=== PATIENT | male | born 1975 | race Caucasian/White ===

== ENCOUNTER 2023-11-05 11:51 | Inpatient (IN) | payer MEDICARE, OTHER ==
[2023-11-05 11:59] LABS: Glucose,Whole Blood 559 mg/dL (70-110)
[2023-11-05] MEDS: SODIUM CHLORIDE 0.9% 1,000 ML IV SCH (13:20)
[2023-11-05] MEDS: SODIUM CHLORIDE 0.9% 1,000 ML IV ONE (13:20)
--- NOTE | 2023-11-05 13:31 | XR ---
EXAMINATION TYPE: XR chest 2V DATE OF EXAM: 11/05/2023 COMPARISON: NONE HISTORY: Chest pain TECHNIQUE: Frontal and lateral views of the chest are obtained. FINDINGS: There is no focal air space opacity. No evidence for pneumothorax. No pleural effusion. The cardiac silhouette size is within normal limits. The osseous structures are grossly intact. IMPRESSION: 1. No acute cardiopulmonary process.
[2023-11-05 13:51] LABS: ALT 66 U/L (4-49); AST 64 U/L (17-59); African American GFR (CKD) >90 (>60 ml/min/1.73 sqM); Albumin 3.1 g/dL (3.5-5.0); Alkaline Phosphatase 83 U/L (38-126); Anion Gap 6 mmol/L; Blood Urea Nitrogen 23 mg/dL (9-20); Calcium 8.4 mg/dL (8.4-10.2); Carbon Dioxide 22 mmol/L (22-30); Chloride 99 mmol/L (98-107); Glucose 490 mg/dL (74-99); Non-African American GFR(CKD) >90 (>60 ml/min/1.73 sqM); Potassium 5.1 mmol/L (3.5-5.1); Sodium 127 mmol/L (137-145); Total Bilirubin 0.7 mg/dL (0.2-1.3); Total Protein 6.2 g/dL (6.3-8.2)
[2023-11-05 14:00] LABS: NT-Pro-B-Type Natriuretic Pept 101 pg/mL
--- NOTE | 2023-11-05 14:01 | US ---
EXAMINATION TYPE: US venous doppler duplex LE LT DATE OF EXAM: 11/05/2023 1:12 PM COMPARISON: NONE CLINICAL INDICATION: Male, 48 years old with history of leg swelling; HTN; DM; LLE swelling SIDE PERFORMED: Left TECHNIQUE: The lower extremity deep venous system is examined utilizing real time linear array sonog toya with graded compression, doppler sonography and color-flow sonography. VESSELS IMAGED: Common Femoral Vein Deep Femoral Vein Greater Saphenous Vein * Femoral Vein Popliteal Vein Small Saphenous Vein * Proximal Calf Veins (* superficial vessels) Right Leg: NA Left Leg: Negative for DVT Multiple enlarged hypoechoic lymph nodes noted IMPRESSION: Grayscale, color doppler, spectral doppler imaging performed of the deep veins of the lo wer extremities. There is normal flow, compressibility, vascular waveforms.
[2023-11-05 14:05] LABS: Basophils # (A) 0.1 k/uL (0-0.2); Basophils % (A) 0 %; Eosinophils # (A) 0.3 k/uL (0-0.7); Eosinophils % (A) 2 %; HCT 34.1 % (39.0-53.0); HGB 11.6 gm/dL (13.0-17.5); Lymphocytes # (A) 0.6 k/uL (1.0-4.8); Lymphocytes % (A) 3 %; MCHC 33.9 g/dL (31.0-37.0); MCV 85.3 fL (80.0-100.0); Mean Platelet Volume 7.2; Monocytes # (A) 0.9 k/uL (0-1.0); Monocytes % (A) 5 %; Neutrophils # (A) 17.3 k/uL (1.3-7.7); Neutrophils % (A) 90 %; Platelet Count 148 k/uL (150-450); RBC 3.99 m/uL (4.30-5.90); RDW 14.6 % (11.5-15.5); WBC 19.3 k/uL (3.8-10.6)
--- NOTE | 2023-11-05 15:10 | ED ---
General Adult HPI - General Chief complaint: Recheck/Abnormal Lab/Rx Stated complaint: Hyperglycemia Time Seen by Provider: 11/05/23 12:25 Source: patient, EMS Mode of arrival: EMS Limitations: no limitations - History of Present Illness Initial comments: 48-year-old male with past medical history of diabetes mellitus on insulin, DVT, coronary disease with bypass, polysubstance abuse who presents to the emergency department with swollen left leg, elevated heart rate and high glucose. Patient is a transfer from [place]. He reported to [facility] yesterday. Today he went into the medical office and was complaining of swelling in his left leg with redness and pain. He told them he had of DVT he also has a history of coronary artery disease with bypass. He is supposed to take Plavix. States he has not had his medication in 1 week. He is also supposed to be on insulin. He states they have been giving him insulin at [facility] however his sugars have still been running high. Patient denies any chest pain or shortness of breath. No abdominal pain. No history of liver disease. Unsure if he has a history of heart failure. No fevers. No other alleviating, precipitating or modifying factors - Related Data Home Medications Medication Instructions Recorded Confirmed Atorvastatin Calcium [Lipitor] 40 mg PO HS 11/05/23 11/05/23 Cephalexin [Keflex] 1,000 mg PO BID 11/05/23 11/05/23 Clopidogrel [Plavix] 75 mg PO DAILY 11/05/23 11/05/23 Insulin Regular, Human [NovoLIN R] See Protocol SQ ACHS 11/05/23 11/05/23 buprenorphine HCL [Subutex] 8 mg SL DAILY 11/05/23 11/05/23 lisinopriL [Zestril] 5 mg PO DAILY 11/05/23 11/05/23 metFORMIN HCL 1,000 mg PO BID 11/05/23 11/05/23 Allergies Allergy/AdvReac Type Severity Reaction Status Date / Time lorazepam [From Ativan] AdvReac psychotic Verified 11/05/23 14:42 episodes Review of Systems ROS Statement: Those systems with pertinent positive or pertinent negative responses have been documented in the HPI. ROS Other: All systems not noted in ROS Statement are negative. Past Medical History Past Medical History: Diabetes Mellitus, Deep Vein Thrombosis (DVT), Myocardial Infarction (ID) History of Any Multi-Drug Resistant Organisms: None Reported Past Surgical History: Coronary Bypass/CABG Smoking Status: Current every day smoker Past Alcohol Use History: None Reported Past Drug Use History: Cocaine, Heroin, Marijuana, Opiates General Exam Limitations: no limitations General appearance: alert, in no apparent distress Head exam: Present: atraumatic, normocephalic, normal inspection Eye exam: Present: normal appearance, PERRL, EOMI. Absent: scleral icterus, conjunctival injection, periorbital swelling ENT exam: Present: normal exam, mucous membranes moist Neck exam: Present: normal inspection Respiratory exam: Present: normal lung sounds bilaterally. Absent: respiratory distress, wheezes, rales, rhonchi, stridor Cardiovascular Exam: Present: regular rate, normal rhythm, normal heart sounds. Absent: systolic murmur, diastolic murmur, rubs, gallop, clicks GI/Abdominal exam: Present: soft, normal bowel sounds. Absent: distended, tenderness, guarding, rebound, rigid Extremities exam: Present: other (redness, warmth, swelling to the left lower extremity. Some skin ulceration around his great toe) Back exam: Present: normal inspection Neurological exam: Present: alert, oriented X3, CN II-XII intact Psychiatric exam: Present: normal affect, normal mood Course Vital Signs 11/05/23 11/05/23 11:53 12:04 Temperature 97.2 F L Pulse Rate 99 Pulse Rate [ 100 Therapist Radiation ] Respiratory 18 Rate Blood Pressure 121/72 O2 Sat by Pulse 97 Oximetry Medical Decision Making - Medical Decision Making Was pt. sent in by a medical professional or institution (, PA, RESIDENTIAL MORTGAGE MANAGER, urgent care, hospital, or intermediate...) When possible be specific @ -[facility] Did you speak to anyone other than the patient for history (EMS, parent, family, police, friend...)? What history was obtained from this source @ -EMS Did you review nursing and triage notes (agree or disagree)? Why? @ -I reviewed and agree with nursing and triage notes Were old charts reviewed (outside hosp., previous admission, EMS record, old EKG, old radiological studies, urgent care reports/EKG's, intermediate records)? Report findings @ -Reviewed packet from [facility] Differential Diagnosis (chest pain, altered mental status, abdominal pain women, abdominal pain men, vaginal bleeding, weakness, fever, dyspnea, syncope, headache, dizziness, GI bleed, back pain, seizure, CVA, palpatations, mental health, musculoskeletal)? @ -cellulitis, abscess, DVT, heart failure EKG interpreted by me (3pts min.). @ -Yes and demonstrates sinus rhythm with a rate of 83. MI interval 191. QRS 85. QTc of 389. No acute ST segment elevations or depressions X-rays interpreted by me (1pt min.). @ -yes and there are no signs of heart failure CT interpreted by me (1pt min.). @ -None done U/S interpreted by me (1pt. min.). @ -Yes and there are no signs of DVT What testing was considered but not performed or refused? (CT, X-rays, U/S, labs)? Why? @ -CT chest was considered however patient denies any chest pain or shortness of breath What meds were considered but not given or refused? Why? @ -None Did you discuss the management of the patient with other professionals (samantha osman i.e. , PA, RESIDENTIAL MORTGAGE MANAGER, lab, RT, psych nurse, social services aide, borematic machine operator, teacher, staff electronic warfare officer, shoe caser)? Give summary @ -spoke with dr. mitchell who accepted admission Was smoking cessation discussed for >3mins.? @ -No Was critical care preformed (if so, how long)? @ -No Were there social determinants of health that impacted care today? How? (Homelessness, low income, unemployed, alcoholism, drug addiction, transportation, low edu. Level, literacy, decrease access to med. care, penitentiary, rehab)? @ -Patient is at [facility] Was there de-escalation of care discussed even if they declined (Discuss DNR or withdrawal of care, Hospice)? DNR status @ -No What co-morbidities impacted this encounter? (DM, HTN, Smoking, COPD, CAD, Cancer, CVA, ARF, Chemo, Hep., AIDS, mental health diagnosis, sleep apnea, morbid obesity)? @ -Coronary artery disease with bypass, dm, dvt Was patient admitted / discharged? Hospital course, mention meds given and route, prescriptions, significant lab abnormalities, going to OR and other pertinent info. @ -Upon arrival patient seen and evaluated in room 25. Thorough history and physical exam was performed. IV access was established. Laboratory studies are conducted. Glucose is high. He is started on 150 cc of normal saline per hour as it is unsure it is unknown if the patient has a history of heart failure. Ultrasound was performed. Chest x-ray was performed. No signs of DVT. Patient is not in heart failure. Glucose is high therefore patient is dosed additional insulin. There are concerns that the patient's left lower extremity swelling and redness is due to cellulitis as he does have an elevated white blood cell count of 19. He will be initiated on antibiotics at this time. Patient requires admission. Spoke with Dr. Mitchell for admission. Undiagnosed new problem with uncertain prognosis? @ -No Drug Therapy requiring intensive monitoring for toxicity (Heparin, Nitro, Insulin, Cardizem)? @ -No Were any procedures done? @ -No Diagnosis/symptom? @ -Acute left lower extremity swelling possible cellulitis, evaluation for DVT, leukocytosis, hyperglycemia Acute, or Chronic, or Acute on Chronic? @ -acute Uncomplicated (without systemic symptoms) or Complicated (systemic symptoms)? @ -complicated Side effects of treatment? @ -No Exacerbation, Progression, or Severe Exacerbation? @ -No Poses a threat to life or bodily function? How? (Chest pain, USA, ID, pneumonia, PE, COPD, DKA, ARF, appy, cholecystitis, CVA, Diverticulitis, Homicidal, Suicidal, threat to staff... and all critical care pts) @ -No - Lab Data Result diagrams: 11/05/23 13:17 11/05/23 13:17 Lab Results 11/05/23 11/05/23 11/05/23 Range/Units 11:58 13:17 13:17 WBC 19.3 H (3.8-10.6) k/uL RBC 3.99 L (4.30-5.90) m/uL Hgb 11.6 L (13.0-17.5) gm/dL Hct 34.1 L (39.0-53.0) % MCV 85.3 (80.0-100.0) fL MCH 29.0 (25.0-35.0) pg MCHC 33.9 (31.0-37.0) g/dL RDW 14.6 (11.5-15.5) % Plt Count 148 L (150-450) k/uL MPV 7.2 Neutrophils % 90 % Lymphocytes % 3 % Monocytes % 5 % Eosinophils % 2 % Basophils % 0 % Neutrophils # 17.3 H (1.3-7.7) k/uL Lymphocytes # 0.6 L (1.0-4.8) k/uL Monocytes # 0.9 (0-1.0) k/uL Eosinophils # 0.3 (0-0.7) k/uL Basophils # 0.1 (0-0.2) k/uL Sodium 127 L (137-145) mmol/L Potassium 5.1 (3.5-5.1) mmol/L Chloride 99 (98-107) mmol/L Carbon Dioxide 22 (22-30) mmol/L Anion Gap 6 mmol/L BUN 23 H (9-20) mg/dL Creatinine 0.69 (0.66-1.25) mg/dL Est GFR (CKD-EPI)AfAm >90 (>60 ml/min/1.73 sqM) Est GFR (CKD-EPI)NonAf >90 (>60 ml/min/1.73 sqM) Glucose 490 H (74-99) mg/dL POC Glucose (mg/dL) 559 H* (70-110) mg/dL POC Glu Alarm Mechanism Adjuster ID Belval, Ginger Plasma Lactic Acid Christopher (0.7-2.0) mmol/L Calcium 8.4 (8.4-10.2) mg/dL Total Bilirubin 0.7 (0.2-1.3) mg/dL AST 64 H (17-59) U/L ALT 66 H (4-49) U/L Alkaline Phosphatase 83 (38-126) U/L Troponin I (0.000-0.034) ng/mL NT-Pro-B Natriuret Pep 101 pg/mL Total Protein 6.2 L (6.3-8.2) g/dL Albumin 3.1 L (3.5-5.0) g/dL Acetone, Qual Negative (Negative) 11/05/23 11/05/23 Range/Units 13:17 13:17 WBC (3.8-10.6) k/uL RBC (4.30-5.90) m/uL Hgb (13.0-17.5) gm/dL Hct (39.0-53.0) % MCV (80.0-100.0) fL MCH (25.0-35.0) pg MCHC (31.0-37.0) g/dL RDW (11.5-15.5) % Plt Count (150-450) k/uL MPV Neutrophils % % Lymphocytes % % Monocytes % % Eosinophils % % Basophils % % Neutrophils # (1.3-7.7) k/uL Lymphocytes # (1.0-4.8) k/uL Monocytes # (0-1.0) k/uL Eosinophils # (0-0.7) k/uL Basophils # (0-0.2) k/uL Sodium (137-145) mmol/L Potassium (3.5-5.1) mmol/L Chloride (98-107) mmol/L Carbon Dioxide (22-30) mmol/L Anion Gap mmol/L BUN (9-20) mg/dL Creatinine (0.66-1.25) mg/dL Est GFR (CKD-EPI)AfAm (>60 ml/min/1.73 sqM) Est GFR (CKD-EPI)NonAf (>60 ml/min/1.73 sqM) Glucose (74-99) mg/dL POC Glucose (mg/dL) (70-110) mg/dL POC Glu Alarm Mechanism Adjuster ID Plasma Lactic Acid Christopher 2.5 H* (0.7-2.0) mmol/L Calcium (8.4-10.2) mg/dL Total Bilirubin (0.2-1.3) mg/dL AST (17-59) U/L ALT (4-49) U/L Alkaline Phosphatase (38-126) U/L Troponin I <0.012 (0.000-0.034) ng/mL NT-Pro-B Natriuret Pep pg/mL Total Protein (6.3-8.2) g/dL Albumin (3.5-5.0) g/dL Acetone, Qual (Negative) Disposition Clinical Impression: Cellulitis, Hyperglycemia, Leukocytosis Disposition: ADMITTED IP TO THIS HOSP Condition: Stable Is patient prescribed a controlled substance at d/c from ED?: No Referrals: None,Stated [Primary Care Provider] - 1-2 days Time of Disposition: 15:54 Decision to Admit Reason: Admit from EC Decision Date: 11/05/23 Decision Time: 15:54
[2023-11-05] MEDS ORDERED: VANCOMYCIN IV PER PHARMACY 1 EACH MISC MISCELLANE PRN (15:31)
[2023-11-05] MEDS ORDERED: DEXTROSE 50% SYRINGE 50 ML IVP PRN ×2 (15:53)
[2023-11-05] MEDS ORDERED: ACETAMINOPHEN TAB 325 MG TAB PO PRN (15:55)
[2023-11-05] MEDS ORDERED: NALOXONE 0.4 MG/ML 1 ML VIAL IV PRN (15:55)
[2023-11-05 16:22] LABS: Glucose,Whole Blood 255 mg/dL (70-110)
[2023-11-05] MEDS: VANCOMYCIN 1,250 MG in SODIUM CHLORIDE 0.9% 250 ML IVPB STA (16:29)
[2023-11-05] MEDS: AMPICILLIN-SULBACTAM 3 GM in SODIUM CHLORIDE 0.9% 100 ML IVPB STA (16:30)
[2023-11-05] MEDS: INSULIN REGULAR 100 UNIT/ML VIAL (IM/SQ) SQ ONE (16:33)
[2023-11-05] MEDS: metFORMIN 500 MG TAB PO SCH (16:47)
[2023-11-05] MEDS: INSULIN ASPART (NovoLOG) 100 UNIT/ML VIAL SQ SCH (16:48)
[2023-11-05 16:49] LABS: Appearance,Urine Clear (Clear); Bilirubin,Urine Negative (Negative); Blood,Urine Trace (Negative); Color,Urine Colorless; Glucose,Urine (UA) 4+ (Negative); Ketones,Urine Negative (Negative); Leukocyte Esterase,Urine Negative (Negative); Nitrite,Urine Negative (Negative); Protein,Urine 1+ (Negative); RBC,Urine <1 /hpf (0-5); Specific Gravity,Urine 1.015 (1.001-1.035); Urobilinogen,Urine <2.0 mg/dL (<2.0); WBC,Urine <1 /hpf (0-5)
--- NOTE | 2023-11-05 17:13 | P.HPIM ---
History of Present Illness H&P Date: 11/05/23 History of Present Illness Patient is a 48-year-old male with past medical history of insulin-dependent type 2 diabetes, DVT, CAD with CABG x 4, polysubstance abuse who presents with fatigue and swollen left leg. Patient is a transfer from [facility]. He reported to [facility] yesterday patient states this morning he was not feeling well and described as feeling fatigue and weakness. He states he is felt nauseous and vomited this morning. He also admits to feeling dehydrated. He is noncompliant with his medications stating that he has not taken it for the past week, and says he is inconsistent at best. Patient also has ulceration seen on left foot. He just noticed ulceration today and does not know the origins of it. Denies any pain in his foot. Denies any fever, chest pain, shortness of breath, abdominal pain. Vitals in the ED: Temperature 97.2, pulse rate 100, respiratory rate 18, blood pressure 121/72, SaO2 97 on room air. Labs show WBC 19 point, Hgb 11.6, PLT 148, sodium 127, glucose 490, lactic acid 2.5, acetone negative. UA: Glucose 4+, trace blood, rest unremarkable. EKG shows normal sinus rhythm. Venous Doppler showed no evidence of DVT. Chest x-ray on independent interpretation shows no cardiopulmonary process. Patient to be admitted for further evaluation of diabetic foot infection and hyperglycemia. Pertinent positives and negatives as discussed above, a complete review of systems was performed and all other systems are negative. Vitals: Signs Reviewed Physical Exam: General: nontoxic, no distress, appears at stated age Derm: warm, dry, intact Head: atraumatic, normocephalic, symmetric Eyes: EOMI, no lid lag, anicteric sclera Mouth: no lip lesion, mucus membranes moist Cardiovascular: S1 S2 reg, no murmur, rubs, or gallops Lungs: CTA bilateral, no rhonchi, no rales, no accessory muscle use Abdominal: soft, non-tender to palpataion, no appreciable organomegaly Extremities: no gross muscle atrophy, no edema, no contractures, ulceration seen on plantar aspect on right 1st toe, left calf redness/tenderness present Neuro: Alert, Oriented, CNII-XII grossly intact, gait normal Psych: well appearing, appropriate affect Assessment and Plan: Patient is a 48-year-old male with past medical history of insulin-dependent type 2 diabetes, DVT, CAD with CABG x 4, polysubstance abuse who presents with fatigue and swollen left leg. Active: Hyperglycemia Insulin-dependent type 2 diabetes Given 16 units of insulin SQ at [facility] Continue metformin 1000 mg p.o. twice daily Insulin subcu sliding scale Normal saline with 150 mls/hr Monitor for hypoglycemia Glucose checks, monitor BMP A1c pending Lactic acid 1.7 UA negative Diabetic foot infection secondary to cellulitis Leukocytosis IV vancomycin. Monitor for renal toxicity. 3 gm Unasyn IVP once Blood cultures pending Follow-up CBC Acetaminophen tab 650 mg PO q6hr prn for mild pain or fever Chronic: Coronary artery disease, CABG x 4 Hypertension Lisinopril 5 mg p.o. daily Atorvastatin 40 mg p.o. at bedtime Plavix 75 mg p.o. daily Polysubstance abuse History of IV drug use use. Narcan 0.2 IV q2m prn History of DVT F: Normal saline with 150 mls/hr E: Replete as needed N: Consistent carbohydrate diet A: Fall precautions, hypoglycemia precautions DVT ppx: Code status: Full Anticipated discharge place: Pending clinical course Anticipated discharge time: Pending clinical course I have seen and evaluated the patient today. Discussed with the resident and agree with the residents subjective and objective as documented in the resident's note. The assessment and plan was discussed and outlined as below. Sepsis secondary to infected diabetic foot ulcer: Start Vancomycin dosed per pharmacy while monitoring renal function. Start Unasyn 3g IV TID. Order BCx. Telemetry monitoring. ID consulted. Diabetes mellitus with hyperglycemia: ISS. Accuchecks ACHS. Hypoglycemic precautions. Follow A1c. Hyponatremia: Pseudo. IV hydration as above. Repeat labs tomorrow. Lactic acidosis: Hold Metformin. IV hydration as above. Trend until negative. Transaminitis: Given h/o IVDU obtain hepatitis panel. CAD with CABG: Plavix 75 mg PO QD. Lipitor 40 mg PO QHS. Normocytic anemia: Unknown baseline. No signs of active bleeding. Monitor. Thrombocytopenia History of IVDU Lovenox SQ for DVT prophylaxis. FULL CODE. Past Medical History Past Medical History: Diabetes Mellitus, Deep Vein Thrombosis (DVT), Myocardial Infarction (NC) History of Any Multi-Drug Resistant Organisms: None Reported Past Surgical History: Coronary Bypass/CABG Smoking Status: Current every day smoker Past Alcohol Use History: None Reported Past Drug Use History: Cocaine, Heroin, Marijuana, Opiates Medications and Allergies Home Medications Medication Instructions Recorded Confirmed Type Atorvastatin Calcium [Lipitor] 40 mg PO HS 11/05/23 11/05/23 History Cephalexin [Keflex] 1,000 mg PO BID 11/05/23 11/05/23 History Clopidogrel [Plavix] 75 mg PO DAILY 11/05/23 11/05/23 History Insulin Regular, Human [NovoLIN R] See Protocol SQ ACHS 11/05/23 11/05/23 History buprenorphine HCL [Subutex] 8 mg SL DAILY 11/05/23 11/05/23 History lisinopriL [Zestril] 5 mg PO DAILY 11/05/23 11/05/23 History metFORMIN HCL 1,000 mg PO BID 11/05/23 11/05/23 History Allergies Allergy/AdvReac Type Severity Reaction Status Date / Time lorazepam [From Ativan] AdvReac psychotic Verified 11/05/23 14:42 episodes Physical Exam Vitals: Vital Signs Temp Pulse Pulse Resp BP Pulse Ox 11/05/23 16:18 77 18 104/42 99 11/05/23 12:04 100 11/05/23 11:53 97.2 F L 99 18 121/72 97 Intake and Output 11/05/23 11/05/23 11/05/23 06:59 14:59 22:59 Other: Weight 72.575 kg Results CBC & Chem 7: 11/05/23 13:17 11/05/23 13:17 Labs: Abnormal Lab Results - Last 24 Hours (Table) 11/05/23 11/05/23 11/05/23 Range/Units 11:58 13:17 13:17 WBC 19.3 H (3.8-10.6) k/uL RBC 3.99 L (4.30-5.90) m/uL Hgb 11.6 L (13.0-17.5) gm/dL Hct 34.1 L (39.0-53.0) % Plt Count 148 L (150-450) k/uL Neutrophils # 17.3 H (1.3-7.7) k/uL Lymphocytes # 0.6 L (1.0-4.8) k/uL Sodium 127 L (137-145) mmol/L BUN 23 H (9-20) mg/dL Glucose 490 H (74-99) mg/dL POC Glucose (mg/dL) 559 H* (70-110) mg/dL Plasma Lactic Acid Christopher (0.7-2.0) mmol/L AST 64 H (17-59) U/L ALT 66 H (4-49) U/L Total Protein 6.2 L (6.3-8.2) g/dL Albumin 3.1 L (3.5-5.0) g/dL 11/05/23 11/05/23 Range/Units 13:17 16:21 WBC (3.8-10.6) k/uL RBC (4.30-5.90) m/uL Hgb (13.0-17.5) gm/dL Hct (39.0-53.0) % Plt Count (150-450) k/uL Neutrophils # (1.3-7.7) k/uL Lymphocytes # (1.0-4.8) k/uL Sodium (137-145) mmol/L BUN (9-20) mg/dL Glucose (74-99) mg/dL POC Glucose (mg/dL) 255 H (70-110) mg/dL Plasma Lactic Acid Christopher 2.5 H* (0.7-2.0) mmol/L AST (17-59) U/L ALT (4-49) U/L Total Protein (6.3-8.2) g/dL Albumin (3.5-5.0) g/dL
[2023-11-05 20:31] LABS: Glucose,Whole Blood 222 mg/dL (70-110)
[2023-11-05] MEDS: ATORVASTATIN 40 MG TAB PO SCH (21:43)
[2023-11-06] MEDS: AMPICILLIN-SULBACTAM 3 GM in SODIUM CHLORIDE 0.9% 100 ML IVPB SCH ×2 (00:24→23:21)
[2023-11-06] MEDS: VANCOMYCIN 1,250 MG in SODIUM CHLORIDE 0.9% 250 ML IVPB SCH (01:18)
[2023-11-06 06:04] LABS: Glucose,Whole Blood 348 mg/dL (70-110)
[2023-11-06] MEDS: ENOXAPARIN 40 MG/0.4 ML SYRINGE SQ SCH (09:50)
[2023-11-06] MEDS: lisinopriL 5 MG TAB PO SCH (09:52)
[2023-11-06] MEDS: CLOPIDOGREL 75 MG TAB PO SCH (09:52)
[2023-11-06] MEDS: NON FORMULARY DRUG (Buprenorphine Hcl [Subutex] 2 MG Tab.Subl) SUBLINGUAL SCH (10:20)
[2023-11-06 11:28] LABS: Basophils # (A) 0.1 k/uL (0-0.2); Basophils % (A) 1 %; Eosinophils # (A) 0.3 k/uL (0-0.7); Eosinophils % (A) 5 %; HCT 35.5 % (39.0-53.0); HGB 11.8 gm/dL (13.0-17.5); Hypochromasia Slight; Lymphocytes # (A) 1.2 k/uL (1.0-4.8); Lymphocytes % (A) 18 %; MCH 28.9 pg (25.0-35.0); MCHC 33.3 g/dL (31.0-37.0); MCV 86.7 fL (80.0-100.0); Mean Platelet Volume 7.4; Monocytes # (A) 0.4 k/uL (0-1.0); Monocytes % (A) 7 %; Neutrophils # (A) 4.2 k/uL (1.3-7.7); Neutrophils % (A) 67 %; Platelet Count 121 k/uL (150-450); RBC 4.09 m/uL (4.30-5.90); RDW 14.4 % (11.5-15.5); WBC 6.3 k/uL (3.8-10.6)
--- NOTE | 2023-11-06 11:28 | P.PN ---
Subjective Progress Note Date: 11/06/23 Hospital Course: Patient is a 48-year-old male with past medical history of insulin-dependent type 2 diabetes, DVT, CAD with CABG x 4, polysubstance abuse who presents with fatigue and swollen left leg. Patient is a transfer from [place]. He reported to [place] yesterday patient states this morning he was not feeling well and described as feeling fatigue and weakness. He states he is felt nauseous and vomited this morning. He also admits to feeling dehydrated. He is noncompliant with his medications stating that he has not taken it for the past week, and says he is inconsistent at best. Patient also has ulceration seen on left foot. He just noticed ulceration today and does not know the origins of it. Denies any pain in his foot. Denies any fever, chest pain, shortness of breath, abdominal pain. Vitals in the ED: Temperature 97.2, pulse rate 100, respiratory rate 18, blood pressure 121/72, SaO2 97 on room air. Labs show WBC 19 point, Hgb 11.6, PLT 148, sodium 127, glucose 490, lactic acid 2.5, acetone negative. UA: Glucose 4+, trace blood, rest unremarkable. EKG shows normal sinus rhythm. Venous Doppler showed no evidence of DVT. Chest x-ray on independent interpretation shows no cardiopulmonary process. Patient to be admitted for further evaluation of diabetic foot infection and hyperglycemia. Subjective: Patient seen and examined at bedside. No acute events overnight. Pertinent positives and negatives as discussed above, a complete review of systems was performed and all other systems are negative. Vitals: Signs Reviewed Physical Exam: General: nontoxic, no distress, appears at stated age Derm: warm, dry, intact Head: atraumatic, normocephalic, symmetric Eyes: EOMI, no lid lag, anicteric sclera Mouth: no lip lesion, mucus membranes moist Cardiovascular: S1 S2 reg, no murmur, rubs, or gallops Lungs: CTA bilateral, no rhonchi, no rales, no accessory muscle use Abdominal: soft, non-tender to palpataion, no appreciable organomegaly Extremities: no gross muscle atrophy, no edema, no contractures Neuro: Alert, Oriented, CNII-XII grossly intact, gait normal Psych: well appearing, appropriate affect Data Received Today: Pertinent Labs: Glucose [id number] Imaging: X-ray foot on independent interpretation showed no signs of osteomyelitis. Assessment and Plan: Patient is a 48-year-old male with past medical history of insulin-dependent ty pe 2 diabetes, DVT, CAD with CABG x 4, polysubstance abuse who presents with fatigue and swollen left leg. Active: Hyperglycemia Insulin-dependent type 2 diabetes Given 16 units of insulin SQ at [place] (11/04) Continue metformin 1000 mg p.o. twice daily Insulin subcu sliding scale Normal saline with 150 mls/hr Monitor for hypoglycemia Glucose checks, monitor BMP A1c pending Lactic acid 1.7 UA negative Diabetic foot infection secondary to cellulitis Leukocytosis IV vancomycin. Monitor for renal toxicity. 3 gm Unasyn IVP once Blood cultures pending Follow-up CBC Acetaminophen tab 650 mg PO q6hr prn for mild pain or fever X-ray foot pending ID consulted. Pending recommendations Chronic: Coronary artery disease, CABG x 4 Hypertension Lisinopril 5 mg p.o. daily Atorvastatin 40 mg p.o. at bedtime Plavix 75 mg p.o. daily Polysubstance abuse History of IV drug use use. Narcan 0.2 IV q2m prn History of DVT F: Normal saline with 150 mls/hr E: Replete as needed N: Consistent carbohydrate diet A: Fall precautions, hypoglycemia precautions DVT ppx: Code status: Full Anticipated discharge place: Pending clinical course Anticipated discharge time: Pending clinical course I have seen and evaluated the patient today. Discussed with the resident and agree with the residents subjective and objective as documented in the resident's note. The assessment and plan was discussed and outlined as below. Patient reports persistent erythema and pain in his LLE. Echo shows preserved EF with mild TR/SD, trace MR. Leukocytosis has resolved. Maintained on Vancomycin and Unasyn. ID consult pending. Sepsis secondary to infected diabetic foot ulcer: Vancomycin dosed per pharmacy while monitoring renal function. Unasyn 3g IV TID. Foot XR ordered. Follow BCx. Telemetry monitoring. ID consulted. Diabetes mellitus with hyperglycemia: ISS. Accuchecks ACHS. Hypoglycemic precautions. Add Levemir 15 units QHS and Novolog 5 units TID. Follow A1c. Hyponatremia: Pseudo. IV hydration as above. Repeat labs tomorrow. Transaminitis: Given h/o IVDU obtain hepatitis panel. CAD with CABG: Plavix 75 mg PO QD. Lipitor 40 mg PO QHS. Normocytic anemia: Unknown baseline. No signs of active bleeding. Monitor. Thrombocytopenia History of IVDU Resolved: Lactic acidosis Lovenox SQ for DVT prophylaxis. FULL CODE. Objective - Vital Signs Vital signs: Vital Signs Temp 97.9 F 11/06/23 07:32 Pulse 73 11/06/23 07:32 Resp 16 11/06/23 07:32 BP 138/84 11/06/23 07:32 Pulse Ox 94 L 11/06/23 07:32 FiO2 Intake & Output 11/05/23 11/06/23 11/06/23 18:59 06:59 18:59 Output Total 800 600 Balance -800 -600 Weight 72.575 kg 72.575 kg Output: Urine 800 600 Other: Voiding Method Urinal Urinal # Voids 1 - Labs CBC & Chem 7: 11/06/23 10:41 11/05/23 13:17 Labs: Abnormal Lab Results - Last 24 Hours (Table) 11/05/23 11/05/23 11/05/23 Range/Units 11:58 13:17 13:17 WBC 19.3 H (3.8-10.6) k/uL RBC 3.99 L (4.30-5.90) m/uL Hgb 11.6 L (13.0-17.5) gm/dL Hct 34.1 L (39.0-53.0) % Plt Count 148 L (150-450) k/uL Neutrophils # 17.3 H (1.3-7.7) k/uL Lymphocytes # 0.6 L (1.0-4.8) k/uL Sodium (137-145) mmol/L BUN (9-20) mg/dL Glucose (74-99) mg/dL POC Glucose (mg/dL) 559 H* (70-110) mg/dL Plasma Lactic Acid Christopher (0.7-2.0) mmol/L AST (17-59) U/L ALT (4-49) U/L Total Protein (6.3-8.2) g/dL Albumin (3.5-5.0) g/dL Urine Protein 1+ H (Negative) Urine Glucose (UA) 4+ H (Negative) Urine Blood Trace H (Negative) 11/05/23 11/05/23 11/05/23 Range/Units 13:17 13:17 16:21 WBC (3.8-10.6) k/uL RBC (4.30-5.90) m/uL Hgb (13.0-17.5) gm/dL Hct (39.0-53.0) % Plt Count (150-450) k/uL Neutrophils # (1.3-7.7) k/uL Lymphocytes # (1.0-4.8) k/uL Sodium 127 L (137-145) mmol/L BUN 23 H (9-20) mg/dL Glucose 490 H (74-99) mg/dL POC Glucose (mg/dL) 255 H (70-110) mg/dL Plasma Lactic Acid Christopher 2.5 H* (0.7-2.0) mmol/L AST 64 H (17-59) U/L ALT 66 H (4-49) U/L Total Protein 6.2 L (6.3-8.2) g/dL Albumin 3.1 L (3.5-5.0) g/dL Urine Protein (Negative) Urine Glucose (UA) (Negative) Urine Blood (Negative) 11/05/23 11/06/23 Range/Units 20:29 06:03 WBC (3.8-10.6) k/uL RBC (4.30-5.90) m/uL Hgb (13.0-17.5) gm/dL Hct (39.0-53.0) % Plt Count (150-450) k/uL Neutrophils # (1.3-7.7) k/uL Lymphocytes # (1.0-4.8) k/uL Sodium (137-145) mmol/L BUN (9-20) mg/dL Glucose (74-99) mg/dL POC Glucose (mg/dL) 222 H 348 H (70-110) mg/dL Plasma Lactic Acid Christopher (0.7-2.0) mmol/L AST (17-59) U/L ALT (4-49) U/L Total Protein (6.3-8.2) g/dL Albumin (3.5-5.0) g/dL Urine Protein (Negative) Urine Glucose (UA) (Negative) Urine Blood (Negative)
--- NOTE | 2023-11-06 11:30 | CA ---
Transthoracic Echo Report Name: Carroll Prakash Age: 48 Gender: M : 1975 Exam Date: 11/06/2023 09:00 Exam Location: [facility] Ht (in): 69 Wt (lb): 160 Ordering Physician: Clay Smyth MD Attending/Referring Phys: Otr [employer] Angeline Zavala RDCS Procedure CPT: Indications: sepsis ivdu Cardiac Hx: Technical Quality: Fair Contrast 1: Total Dose (mL): Contrast 2: Total Dose (mL): MEASUREMENTS (Male / Female) Normal Values 2D ECHO LV Diastolic Diameter PLAX 4.6 cm 4.2 - 5.9 / 3.9 - 5.3 cm LV Systolic Diameter PLAX 3.2 cm IVS Diastolic Thickness 0.9 cm 0.6 - 1.0 / 0.6 - 0.9 cm LVPW Diastolic Thickness 1.0 cm 0.6 - 1.0 / 0.6 - 0.9 cm LV Relative Wall Thickness 0.4 LVOT Diameter 2.5 cm LV Diastolic Volume MOD BP 161.8 cm??? 67 - 155 / 56 - 104 cm??? LV Systolic Volume MOD BP 57.6 cm??? 22 - 58 / 19 - 49 cm??? LV Ejection Fraction MOD BP 64.4 % >= 55 % LV Cardiac Index MOD BP 3813.6 cm???/min???m??? LV Diastolic Volume MOD 4C 163.8 cm??? LV Systolic Volume MOD 4C 63.2 cm??? LV Ejection Fraction MOD 4C 61.4 % LV Cardiac Index MOD 4C 3685.0 cm???/min???m??? LV Diastolic Length 4C 9.2 cm LV Systolic Length 4C 7.5 cm LV Diastolic Volume MOD 2C 153.0 cm??? LV Systolic Volume MOD 2C 51.4 cm??? LV Ejection Fraction MOD 2C 66.4 % LV Cardiac Index MOD 2C 3719.6 cm???/min???m??? LV Diastolic Length 2C 9.7 cm LV Systolic Length 2C 7.2 cm LA Volume 69.1 cm??? 18 - 58 / 22 - 52 cm??? LA Volume Index 36.7 cm???/m??? 16 - 28 cm???/m??? Ascending Aorta Diameter 3.6 cm DOPPLER AV Peak Velocity 140.9 cm/s AV Peak Gradient 7.9 mmHg AV Mean Velocity 96.1 cm/s AV Mean Gradient 4.2 mmHg AV Velocity Time Integral 31.5 cm LVOT Peak Velocity 126.0 cm/s LVOT Peak Gradient 6.4 mmHg LVOT Velocity Time Integral 26.3 cm LVOT Stroke Volume 126.8 cm??? LVOT Stroke Volume Index 67.5 ml/m??? LVOT Cardiac Index 4643.2 cm???/min???m??? AV Area Cont Eq vti 4.0 cm??? AV Area Cont Eq pk 4.3 cm??? MV Area PHT 5.2 cm??? Mitral E Point Velocity 93.3 cm/s Mitral A Point Velocity 62.7 cm/s Mitral E to A Ratio 1.5 MV Deceleration Time 146.0 ms TR Peak Velocity 225.2 cm/s TR Peak Gradient 20.3 mmHg Right Atrial Pressure 5.0 mmHg Pulmonary Artery Systolic Pressu 25.3 mmHg Right Ventricular Systolic Press 25.3 mmHg PV Peak Velocity 107.6 cm/s PV Peak Gradient 4.6 mmHg FINDINGS Left Ventricle Left ventricular ejection fraction is estimated at 60 %. Mildly increased left ventricular diastolic volume. Left ventricular wall thickness normal. No obvious regional wall motion abnormalities. Right Ventricle Normal right ventricular size and function. Right ventricular systolic pressure within normal limits. Right Atrium Normal right atrial size. Left Atrium Moderately increased left atrial volume. Mildly increased left atrial area. Mitral Valve Structurally normal mitral valve. No evidence for mitral valve prolapse. No mitral stenosis. Trace mitral regurgitation. Aortic Valve Trileaflet aortic valve. No aortic valve stenosis or regurgitation. Tricuspid Valve Structurally normal tricuspid valve. No tricuspid stenosis. Mild tricuspid regurgitation. Pulmonic Valve Structurally normal pulmonic valve. No pulmonic stenosis. Mild pulmonic regurgitation. Pericardium No pericardial effusion. Aorta Normal size aortic root and proximal ascending aorta. CONCLUSIONS Normal LV function Mild tricuspid regurgitation Consider transesophageal echo if clinically indicated to rule out endocarditis. Previewed by: Dr. Waylon Barron MD (Electronically Signed) Final Date: 06 November 2023 11:28
--- NOTE | 2023-11-06 11:33 | XR ---
EXAMINATION TYPE: XR foot complete LT DATE OF EXAM: 11/06/2023 CLINICAL HISTORY: pain TECHNIQUE: Frontal, lateral and oblique images of the left foot are obtained. COMPARISON: None. FINDINGS: There is no acute fracture/dislocation evident. The joint spaces appear within normal díaz its. The overlying soft tissue appears unremarkable. IMPRESSION: There is no acute fracture or dislocation. ICD 10 NO FRACTURE, INITIAL EVALUATION
[2023-11-06 11:35] LABS: Glucose,Whole Blood 261 mg/dL (70-110)
[2023-11-06 11:42] LABS: African American GFR (CKD) >90 (>60 ml/min/1.73 sqM); Anion Gap 6 mmol/L; Blood Urea Nitrogen 20 mg/dL (9-20); Calcium 8.1 mg/dL (8.4-10.2); Carbon Dioxide 19 mmol/L (22-30); Chloride 109 mmol/L (98-107); Glucose 252 mg/dL (74-99); Non-African American GFR(CKD) >90 (>60 ml/min/1.73 sqM); Potassium 4.7 mmol/L (3.5-5.1); Sodium 134 mmol/L (137-145)
[2023-11-06] MEDS: NICOTINE 21MG/24HR PATCH TRANSDERM SCH (11:42)
[2023-11-06] MEDS: INSULIN ASPART (NovoLOG) 100 UNIT/ML VIAL SQ SCH (12:12)
[2023-11-06 14:28] VITALS: BMI 23.6
[2023-11-06 16:45] LABS: Glucose,Whole Blood 271 mg/dL (70-110)
[2023-11-06 19:03] LABS: Hepatitis A Antibody IgM Nonreactive (Nonreactive); Hepatitis B Core IgM Nonreactive (Nonreactive); Hepatitis B Surface Antigen Nonreactive (Nonreactive); Hepatitis C IgG Antibody Reactive (Nonreactive)
[2023-11-06 20:41] LABS: Glucose,Whole Blood 223 mg/dL (70-110)
[2023-11-06] MEDS: INSULIN DETEMIR (LEVEMIR) 100 UNIT/ML SYR SQ SCH (21:21)
[2023-11-07 06:13] LABS: Glucose,Whole Blood 338 mg/dL (70-110)
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
[2023-11-07 08:07] LABS: Basophils % (A) 1 %; Eosinophils # (A) 0.4 k/uL (0-0.7); Eosinophils % (A) 7 %; HCT 37.7 % (39.0-53.0); HGB 13.1 gm/dL (13.0-17.5); Lymphocytes # (A) 1.1 k/uL (1.0-4.8); Lymphocytes % (A) 17 %; MCH 29.2 pg (25.0-35.0); MCHC 34.7 g/dL (31.0-37.0); MCV 84.2 fL (80.0-100.0); Mean Platelet Volume 7.2; Monocytes # (A) 0.4 k/uL (0-1.0); Monocytes % (A) 7 %; Neutrophils # (A) 4.2 k/uL (1.3-7.7); Neutrophils % (A) 67 %; Platelet Count 167 k/uL (150-450); RBC 4.48 m/uL (4.30-5.90); RDW 14.3 % (11.5-15.5); WBC 6.2 k/uL (3.8-10.6)
[2023-11-07 08:13] LABS: ALT 70 U/L (4-49); AST 60 U/L (17-59); African American GFR (CKD) >90 (>60 ml/min/1.73 sqM); Albumin 2.9 g/dL (3.5-5.0); Albumin/Globulin Ratio 0.9; Alkaline Phosphatase 80 U/L (38-126); Anion Gap 4 mmol/L; Blood Urea Nitrogen 18 mg/dL (9-20); Calcium 8.8 mg/dL (8.4-10.2); Carbon Dioxide 24 mmol/L (22-30); Chloride 110 mmol/L (98-107); Globulin 3.1 g/dL; Glucose 285 mg/dL (74-99); Magnesium 1.7 mg/dL (1.6-2.3); Non-African American GFR(CKD) >90 (>60 ml/min/1.73 sqM); Potassium 4.2 mmol/L (3.5-5.1); Sodium 138 mmol/L (137-145); Total Bilirubin 0.3 mg/dL (0.2-1.3)
[2023-11-07] MEDS: VANCOMYCIN TROUGH DUE 1 EACH MISC MISCELLANE ONE (09:34)
[2023-11-07 11:36] LABS: Glucose,Whole Blood 192 mg/dL (70-110)
--- NOTE | 2023-11-07 12:40 | P.DS ---
Providers Date of admission: 11/05/23 15:56 Discharge Diagnosis: Hyperglycemia Insulin-dependent type 2 diabetes Mild diabetic foot infection secondary to cellulitis Leukocytosis Coronary artery disease, CABG x 4 Hypertension Polysubstance abuse History of DVT Hospital Course: Patient is a 48-year-old male with past medical history of insulin-dependent type 2 diabetes, DVT, CAD with CABG x 4, polysubstance abuse who presents with fatigue and swollen left leg. Patient is a transfer from [facility]. He reported to [facility] yesterday patient states this morning he was not feeling well and described as feeling fatigue and weakness. He states he is felt nauseous and vomited this morning. He also admits to feeling dehydrated. He is noncompliant with his medications stating that he has not taken it for the past week, and says he is inconsistent at best. Patient also has ulceration seen on left foot. He just noticed ulceration today and does not know the origins of it. Denies any pain in his foot. Denies any fever, chest pain, shortness of breath, abdominal pain. Vitals in the ED: Temperature 97.2, pulse rate 100, respiratory rate 18, blood pressure 121/72, SaO2 97 on room air. Labs show WBC 19 point, Hgb 11.6, PLT 148, sodium 127, glucose 490, lactic acid 2.5, acetone negative. UA: Glucose 4+, trace blood, rest unremarkable. EKG shows normal sinus rhythm. Venous Doppler showed no evidence of DVT. Chest x-ray on independent interpretation shows no cardiopulmonary process. Patient to be admitted for further evaluation of diabetic foot infection and hyperglycemia. While admitted patient was given IV Unasyn and IV vancomycin, monitor for renal toxicity. Foot x-ray showed no evidence of osteomyelitis. Blood cultures thus far have shown no growth after 24 hours. Patient improved under antibiotics. Being sent home with oral antibiotic for 10 days to finish course. He will follow-up with his PCP. Patient being discharged to [facility]. 11/07/2023: Patient seen and examined at bedside. No acute events overnight. Patient says pain levels have gone down. Vital signs reviewed and stable. Physical Exam: General: nontoxic, no distress, appears at stated age Derm: warm, dry, intact Head: atraumatic, normocephalic, symmetric Eyes: EOMI, no lid lag, anicteric sclera Mouth: no lip lesion, mucus membranes moist Cardiovascular: S1 S2 reg, no murmur, rubs, or gallops Lungs: CTA bilateral, no rhonchi, no rales, no accessory muscle use Abdominal: soft, non-tender to palpataion, no appreciable organomegaly Extremities: no gross muscle atrophy, no edema, no contractures, superficial skin ulcer on left 1st toe Neuro: Alert, Oriented, CNII-XII grossly intact, gait normal Psych: well appearing, appropriate affect A total of 30 minutes of time were spent preparing this complex discharge summary. Patient was discharge on 11/07/2023 Expected date of discharge: 11/07/23 Attending physician: Clay Smyth MD Consults: 11/05/23 17:33 Consult Physician Routine Consulting Provider: Marybeth Valles Consult Reason/Comments: sepsis foot ulcer Do you want consulting provider notified?: Yes Primary care physician: Stated None Hospital Course: I have seen and evaluated the patient today. Discussed with the resident and agree with the residents subjective and objective as documented in the resident's note. The assessment and plan was discussed and outlined as below. Erythema improved. Foot XR negative. Discussed with HUSSAIN Pike for discharge on Augmentin x 10 days. Plans to return back to [facility] today. Follow up with PCP within 1-[address] Valles within 1 week of discharge. Discharge Diagnosis: Sepsis secondary to infected diabetic foot ulcer: Augmentin x [address] Valles. Diabetes mellitus with hyperglycemia: Continue home dose of insulin. Transaminitis: Hep C IgG Ab +. Follow up with Dr. Valles for further workup and management. CAD with CABG: Plavix 75 mg PO QD. Lipitor 40 mg PO QHS. Normocytic anemia: Unknown baseline. No signs of active bleeding. Monitor. Thrombocytopenia History of IVDU Resolved: Lactic acidosis, Hyponatremia Patient Condition at Discharge: Stable Plan - Discharge Summary Discharge Rx Participant: Yes New Discharge Prescriptions: New Amoxic-Pot Clav 875-125Mg [Augmentin 875-125] 1 tab PO Q12HR 10 Days #20 tab Continue buprenorphine HCL [Subutex] 8 mg SL DAILY metFORMIN HCL 1,000 mg PO BID lisinopriL [Zestril] 5 mg PO DAILY Clopidogrel [Plavix] 75 mg PO DAILY Atorvastatin Calcium [Lipitor] 40 mg PO HS Insulin Regular, Human [NovoLIN R] See Protocol SQ ACHS Discontinued Cephalexin [Keflex] 1,000 mg PO BID Discharge Medication List Atorvastatin Calcium [Lipitor] 40 mg PO HS 11/05/23 [History] Clopidogrel [Plavix] 75 mg PO DAILY 11/05/23 [History] Insulin Regular, Human [NovoLIN R] See Protocol SQ ACHS 11/05/23 [History] buprenorphine HCL [Subutex] 8 mg SL DAILY 11/05/23 [History] lisinopriL [Zestril] 5 mg PO DAILY 11/05/23 [History] metFORMIN HCL 1,000 mg PO BID 11/05/23 [History] Amoxic-Pot Clav 875-125Mg [Augmentin 875-125] 1 tab PO Q12HR 10 Days #20 tab 11/07/23 [Rx] Follow up Appointment(s)/Referral(s): None,Stated [Primary Care Provider] - 1-2 days Marybeth Valles MD [STAFF PHYSICIAN] - 1 Week Activity/Diet/Wound Care/Special Instructions: Call [facility] at discharge: [phone] #4, #4 - they will transport patient back. Discharge Disposition: OTHER INSTITUTION NOT DEFINED
[2023-11-07 13:40] VITALS: TEMP 98.7
[2023-11-07 14:15] VITALS: BP 123/68; PULSE 67; RESP 16
--- NOTE | 2023-11-07 15:56 | P.PN ---
Subjective Progress Note Date: 11/07/23 Principal diagnosis: Reason for follow-up is left lower extremity cellulitis Patient is a 48-year-old male with a past medical history significant for diabetes mellitus and DVT IA ADHD current everyday smoker status post CABG presenting to the hospital for evaluation of increasing swelling redness to the left lower extremity patient has been diagnosed cellulitis admitted to the hospital infectious disease consulted for further management. On today's evaluation that is 11/07/2023, patient has been afebrile, patient is breathing comfortably and is currently on room air, patient denies having any significant cough no chest pain shortness of breath, patient denies nausea vomiting or diarrhea and no abdominal pain patient mention improvement to the left lower extremity swelling redness and wants to go back to [facility]. Patient white count 6.2, creatinine 0.57 blood cultures currently pending Objective - Vital Signs Vital signs: Vital Signs Temp 97.1 F L 11/07/23 07:10 Pulse 59 L 11/07/23 07:10 Resp 16 11/07/23 07:10 BP 114/67 11/07/23 07:10 Pulse Ox 98 11/07/23 07:10 FiO2 Intake & Output 11/06/23 11/07/23 11/07/23 18:59 06:59 18:59 Intake Total 540 Output Total 1100 Balance -1100 540 Weight 72.575 kg Intake: Oral 540 Output: Urine 1100 Other: Voiding Method Urinal Urinal # Voids 2 # Bowel Movements 1 - Exam GENERAL DESCRIPTION: Middle-age male lying in bed in no distress RESPIRATORY SYSTEM: Unlabored breathing , decreased breath sounds at bases HEART: S1 S2 regular rate and rhythm , ABDOMEN: Soft , no tenderness EXTREMITIES: Left leg swelling redness decreased - Labs CBC & Chem 7: 11/07/23 07:30 11/07/23 07:30 Labs: Abnormal Lab Results - Last 24 Hours (Table) 11/05/23 11/06/23 11/06/23 Range/Units 13:17 10:41 16:42 Hct (39.0-53.0) % Chloride (98-107) mmol/L Creatinine (0.66-1.25) mg/dL Glucose (74-99) mg/dL POC Glucose (mg/dL) 271 H (70-110) mg/dL Hemoglobin A1c 10.4 H (<=6.0) % AST (17-59) U/L ALT (4-49) U/L Total Protein (6.3-8.2) g/dL Albumin (3.5-5.0) g/dL Hep C IgG Ab Reactive A (Nonreactive) 11/06/23 11/07/23 11/07/23 Range/Units 20:40 06:12 07:30 Hct (39.0-53.0) % Chloride 110 H (98-107) mmol/L Creatinine 0.57 L (0.66-1.25) mg/dL Glucose 285 H (74-99) mg/dL POC Glucose (mg/dL) 223 H 338 H (70-110) mg/dL Hemoglobin A1c (<=6.0) % AST 60 H (17-59) U/L ALT 70 H (4-49) U/L Total Protein 6.0 L (6.3-8.2) g/dL Albumin 2.9 L (3.5-5.0) g/dL Hep C IgG Ab (Nonreactive) 11/07/23 11/07/23 Range/Units 07:30 11:34 Hct 37.7 L (39.0-53.0) % Chloride (98-107) mmol/L Creatinine (0.66-1.25) mg/dL Glucose (74-99) mg/dL POC Glucose (mg/dL) 192 H (70-110) mg/dL Hemoglobin A1c (<=6.0) % AST (17-59) U/L ALT (4-49) U/L Total Protein (6.3-8.2) g/dL Albumin (3.5-5.0) g/dL Hep C IgG Ab (Nonreactive) Microbiology - Last 24 Hours (Table) 11/05/23 16:18 Blood Culture - Preliminary Blood Assessment and Plan (1) Diabetic foot ulcer Current Visit: Yes Status: Acute Code(s): E11.621 - TYPE 2 DIABETES MELLITUS WITH FOOT ULCER; L97.509 - NON-PRESSURE CHRONIC ULCER OTH PRT UNSP FOOT W UNSP SEVERITY SNOMED Code(s): 477026787 (2) Left leg cellulitis Current Visit: Yes Status: Acute Code(s): L03.116 - CELLULITIS OF LEFT LOWER LIMB SNOMED Code(s): 51156389310318648 (3) Leukocytosis Current Visit: Yes Status: Acute Code(s): D72.829 - ELEVATED WHITE BLOOD CELL COUNT, UNSPECIFIED SNOMED Code(s): 523144866 Plan: 1patient presented to hospital with multiple symptoms including left lower extremity swelling and redness likely concerning for cellulitis in this patient who did have a superficial ulcer on the left big toe likely from a callus and likely the source of the cellulitis more likely from gram-positive skin lisette gram-negative infection less likely but not entirely excluded 2patient seem to have shown clinical improvement predominantly on Unasyn hence we will consider finishing therapy with oral Augmentin x 10 days discussed with the admitting team Dictation was produced using [employer] dictation software. please excuse any grammatical, word or spelling errors. Time with Patient: Less than 30
[2023-11-07] MEDS ORDERED: VANCOMYCIN 1,000 MG in SODIUM CHLORIDE 0.9% 250 ML IVPB SCH (18:00)
== END 2023-11-07 16:52 | disposition other institution (70) | DRG 872 ==
LOC: EC 11:51 → 4SSUR 15:56
PROVIDERS: ADMIT Family Medicine; ATTEND Family Medicine
DX: A41.9 Sepsis, unspecified organism (principal); L03.116 Cellulitis of left lower limb; E87.20 Acidosis, unspecified; E87.1 Hypo-osmolality and hyponatremia; E11.65 Type 2 diabetes mellitus with hyperglycemia; I25.10 Atherosclerotic heart disease of native coronary artery without angina pectoris; T45.526A Underdosing of antithrombotic drugs, initial encounter; I10 Essential (primary) hypertension; F19.10 Other psychoactive substance abuse, uncomplicated; R74.01 Elevation of levels of liver transaminase levels; Z91.148 Patient's other noncompliance with medication regimen for other reason; B18.2 Chronic viral hepatitis C; D64.9 Anemia, unspecified; E86.0 Dehydration; D69.6 Thrombocytopenia, unspecified; E11.621 Type 2 diabetes mellitus with foot ulcer; L97.529 Non-pressure chronic ulcer of other part of left foot with unspecified severity; E11.628 Type 2 diabetes mellitus with other skin complications; F17.200 Nicotine dependence, unspecified, uncomplicated; Z79.4 Long term (current) use of insulin; Z95.1 Presence of aortocoronary bypass graft; Z88.8 Allergy status to other drugs, medicaments and biological substances; Z86.718 Personal history of other venous thrombosis and embolism; Z79.899 Other long term (current) drug therapy; Z79.84 Long term (current) use of oral hypoglycemic drugs; Z79.02 Long term (current) use of antithrombotics/antiplatelets; I25.2 Old myocardial infarction
CPT/HCPCS: 36415; 71046; 80048; 80053; 80074; 80202; 81001; 82009; 83036; 83605; 83735; 83880; 84484; 85025; 87040; 93005; 93306; 96365; 96366; 96368; 99285